=== PATIENT | female | born 1990 | race Two or more races ===

== ENCOUNTER 2021-10-08 13:50 | Emergency (ER) | payer SELFPAY ==
[~2021-10-08] VITALS: Ht 157.5 cm; Wt 81.6 kg
[2021-10-08 14:46] VITALS: BP 123/85
[2021-10-08] MEDS: SILVER SULFADIAZINE 1 % TOPICAL CREAM 50GM TOP ONE (15:26)
== END 2021-10-08 15:31 | disposition home or self-care (01) ==
LOC: ER 13:50
DX: T23.211A Burn of second degree of right thumb (nail), initial encounter (principal); T20.16XA Burn of first degree of forehead and cheek, initial encounter; X16.XXXA Contact with hot heating appliances, radiators and pipes, initial encounter; Y93.89 Activity, other specified; Y92.89 Other specified places as the place of occurrence of the external cause; Y99.8 Other external cause status
CPT/HCPCS: 16020